=== PATIENT | male | born 1985 | race Caucasian/White ===

== ENCOUNTER 2022-03-28 10:24 | Emergency (ER) | payer BC ==
[2022-03-28 10:39] VITALS: RESP 20; TEMP 98.1
[2022-03-28 11:40] LABS: Basophils # (A) 0.1 k/uL (0-0.2); Basophils % (A) 1 %; Eosinophils # (A) 0.4 k/uL (0-0.7); Eosinophils % (A) 4 %; HCT 45.8 % (39.0-53.0); HGB 15.3 gm/dL (13.0-17.5); Lymphocytes # (A) 1.6 k/uL (1.0-4.8); Lymphocytes % (A) 16 %; MCH 30.4 pg (25.0-35.0); MCHC 33.4 g/dL (31.0-37.0); MCV 90.8 fL (80.0-100.0); Mean Platelet Volume 7.7; Monocytes # (A) 0.7 k/uL (0-1.0); Monocytes % (A) 7 %; Neutrophils # (A) 7.2 k/uL (1.3-7.7); Neutrophils % (A) 70 %; Platelet Count 228 k/uL (150-450); RBC 5.05 m/uL (4.30-5.90); RDW 12.7 % (11.5-15.5); WBC 10.2 k/uL (3.8-10.6)
[2022-03-28 11:52] LABS: ALT 34 U/L (4-49); AST 31 U/L (17-59); African American GFR (CKD) >90 (>60 ml/min/1.73 sqM); Albumin 4.6 g/dL (3.5-5.0); Alkaline Phosphatase 89 U/L (38-126); Amylase 72 U/L (30-110); Anion Gap 10 mmol/L; Blood Urea Nitrogen 18 mg/dL (9-20); Calcium 10.1 mg/dL (8.4-10.2); Carbon Dioxide 27 mmol/L (22-30); Chloride 104 mmol/L (98-107); Glucose 103 mg/dL (74-99); Lipase 99 U/L (23-300); Non-African American GFR(CKD) >90 (>60 ml/min/1.73 sqM); Potassium 4.7 mmol/L (3.5-5.1); Sodium 141 mmol/L (137-145); Total Bilirubin 0.4 mg/dL (0.2-1.3); Total Protein 7.3 g/dL (6.3-8.2)
[2022-03-28 12:03] LABS: Appearance,Urine Clear (Clear); Bilirubin,Urine Negative (Negative); Blood,Urine Small (Negative); Color,Urine Light Yellow; Glucose,Urine (UA) Negative (Negative); Ketones,Urine Negative (Negative); Leukocyte Esterase,Urine Negative (Negative); Mucus,Urine Rare /hpf; Nitrite,Urine Negative (Negative); PH, Urine 5.5 (5.0-8.0); Protein,Urine Negative (Negative); RBC,Urine 17 /hpf (0-5); Specific Gravity,Urine 1.014 (1.001-1.035); Urobilinogen,Urine <2.0 mg/dL (<2.0); WBC,Urine <1 /hpf (0-5)
[2022-03-28] MEDS ORDERED: SODIUM CHLORIDE 0.9% 1,000 ML IV STA (12:28)
[2022-03-28] MEDS ORDERED: KETOROLAC 15 MG/ML 1 ML VIAL IVP STA (12:28)
--- NOTE | 2022-03-28 12:37 | XR ---
EXAMINATION TYPE: XR KUB DATE OF EXAM: 03/28/2022 COMPARISON: NONE HISTORY: Pain TECHNIQUE: One view abdominal series FINDINGS: The osseous structures are intact. The bowel gas pattern is nonspecific. Retained bowel contents thr oughout the colon. Images spine with hypertrophic and degenerative changes. Subsegmental changes at the left lung base. IMPRESSION: 1. Nonspecific abdomen. No diagnostic evidence of obstruction. 2. Left basilar atelectasis or early infiltrate.
--- NOTE | 2022-03-28 12:51 | ED ---
Abdominal Pain HPI - General Chief Complaint: Abdominal Pain Stated Complaint: rt side lower abd pain Time Seen by Provider: 03/28/22 12:21 Source: patient, RN notes reviewed Mode of arrival: ambulatory Limitations: no limitations - History of Present Illness Initial Comments: This is a 37-year-old male who presents to the emergency department for right lower quadrant pain. Patient states that the pain started yesterday, and seemed to improve. It then occurred at work again today, and he states that he dropped to his knees and threw up. The pain has been occurring intermittently. Denies any changes in bowel habits or urinary symptoms. States that he is not currently feeling nauseous. Denies any history of kidney stones or abdominal surgeries. Denies any fevers, chills, sore throat, cough, dyspnea, chest pain, palpitations, diarrhea, back pain, or headaches. MD Complaint: abdominal pain Onset/Timin -: days(s) Location: RLQ Associated Symptoms: nausea, vomiting - Related Data Previous Rx's Medication Instructions Recorded HYDROcodone/APAP 5-325MG [Bath 1 tab PO Q6HR PRN 3 Days #12 tab 03/28/22 5-325] Ondansetron Odt [Zofran Odt] 4 mg PO Q8HR PRN #20 tab 03/28/22 Tamsulosin [Flomax] 0.4 mg PO DAILY #10 cap 03/28/22 Allergies Allergy/AdvReac Type Severity Reaction Status Date / Time No Known Allergies Allergy Verified 03/28/22 12:59 Review of Systems ROS Statement: Those systems with pertinent positive or pertinent negative responses have been documented in the HPI. ROS Other: All systems not noted in ROS Statement are negative. Past Medical History Past Medical History: No Reported History History of Any Multi-Drug Resistant Organisms: None Reported Past Surgical History: No Surgical Hx Reported Past Psychological History: No Psychological Hx Reported Smoking Status: Current every day smoker Past Alcohol Use History: None Reported Past Drug Use History: None Reported General Exam Limitations: no limitations General appearance: alert, in no apparent distress Head exam: Present: atraumatic, normocephalic, normal inspection Respiratory exam: Present: normal lung sounds bilaterally. Absent: respiratory distress, wheezes, rales, rhonchi, stridor Cardiovascular Exam: Present: regular rate, normal rhythm, normal heart sounds. Absent: systolic murmur, diastolic murmur, rubs, gallop, clicks GI/Abdominal exam: Present: soft, tenderness (Right lower quadrant), guarding, normal bowel sounds. Absent: distended Neurological exam: Present: alert, oriented X3, CN II-XII intact Psychiatric exam: Present: normal affect, normal mood Skin exam: Present: warm, dry, intact, normal color. Absent: rash Course Vital Signs 03/28/22 03/28/22 10:37 15:43 Temperature 98.1 F Pulse Rate 72 70 Respiratory 20 20 Rate Blood Pressure 176/114 158/87 O2 Sat by Pulse 97 97 Oximetry Medical Decision Making - Medical Decision Making This is a 37-year-old male who presents to the emergency department for right lower quadrant pain. Lab work was nonactionable. Urinalysis does have a minor amount of blood. KUB x-ray obtained initially, revealing no acute irregularitie s. Computed tomography scan of the abdomen and pelvis obtained revealing a 3 mm right ureteral calculus with mild hydronephrosis. Patient's symptoms were controlled the emergency department. Prescription for Bath, Zofran, and Flomax provided. He is advised to alternate with ibuprofen and Tylenol and to take the Bath and his pain is the most severe. Advised the patient that the Bath is sedating and should be taken at night until he knows how it affects him. Follow-up for urology was provided, he is advised to contact the office for a follow-up appointment. Return precautions reviewed in depth, the patient is instructed to return to the emergency department with any new, worsening, or concerning symptoms. Patient verbalized understanding. This case was discussed in detail with the attending ED physician. Presentation, findings, and treatment plan discussed in detail as well. - Lab Data Result diagrams: 03/28/22 11:32 03/28/22 11:32 Lab Results 03/28/22 03/28/22 03/28/22 Range/Units 11:32 11:32 11:32 WBC 10.2 (3.8-10.6) k/uL RBC 5.05 (4.30-5.90) m/uL Hgb 15.3 (13.0-17.5) gm/dL Hct 45.8 (39.0-53.0) % MCV 90.8 (80.0-100.0) fL MCH 30.4 (25.0-35.0) pg MCHC 33.4 (31.0-37.0) g/dL RDW 12.7 (11.5-15.5) % Plt Count 228 (150-450) k/uL MPV 7.7 Neutrophils % 70 % Lymphocytes % 16 % Monocytes % 7 % Eosinophils % 4 % Basophils % 1 % Neutrophils # 7.2 (1.3-7.7) k/uL Lymphocytes # 1.6 (1.0-4.8) k/uL Monocytes # 0.7 (0-1.0) k/uL Eosinophils # 0.4 (0-0.7) k/uL Basophils # 0.1 (0-0.2) k/uL Sodium 141 (137-145) mmol/L Potassium 4.7 (3.5-5.1) mmol/L Chloride 104 (98-107) mmol/L Carbon Dioxide 27 (22-30) mmol/L Anion Gap 10 mmol/L BUN 18 (9-20) mg/dL Creatinine 0.95 (0.66-1.25) mg/dL Est GFR (CKD-EPI)AfAm >90 (>60 ml/min/1.73 sqM) Est GFR (CKD-EPI)NonAf >90 (>60 ml/min/1.73 sqM) Glucose 103 H (74-99) mg/dL Calcium 10.1 (8.4-10.2) mg/dL Total Bilirubin 0.4 (0.2-1.3) mg/dL AST 31 (17-59) U/L ALT 34 (4-49) U/L Alkaline Phosphatase 89 (38-126) U/L Troponin I (0.000-0.034) ng/mL Total Protein 7.3 (6.3-8.2) g/dL Albumin 4.6 (3.5-5.0) g/dL Amylase 72 (30-110) U/L Lipase 99 (23-300) U/L Urine Color Light Yellow Urine Appearance Clear (Clear) Urine pH 5.5 (5.0-8.0) Ur Specific [place] 1.014 (1.001-1.035) Urine Protein Negative (Negative) Urine Glucose (UA) Negative (Negative) Urine Ketones Negative (Negative) Urine Blood Small H (Negative) Urine Nitrite Negative (Negative) Urine Bilirubin Negative (Negative) Urine Urobilinogen <2.0 (<2.0) mg/dL Ur Leukocyte Esterase Negative (Negative) Urine RBC 17 H (0-5) /hpf Urine WBC <1 (0-5) /hpf Urine Mucus Rare H (None) /hpf 03/28/22 Range/Units 11:32 WBC (3.8-10.6) k/uL RBC (4.30-5.90) m/uL Hgb (13.0-17.5) gm/dL Hct (39.0-53.0) % MCV (80.0-100.0) fL MCH (25.0-35.0) pg MCHC (31.0-37.0) g/dL RDW (11.5-15.5) % Plt Count (150-450) k/uL MPV Neutrophils % % Lymphocytes % % Monocytes % % Eosinophils % % Basophils % % Neutrophils # (1.3-7.7) k/uL Lymphocytes # (1.0-4.8) k/uL Monocytes # (0-1.0) k/uL Eosinophils # (0-0.7) k/uL Basophils # (0-0.2) k/uL Sodium (137-145) mmol/L Potassium (3.5-5.1) mmol/L Chloride (98-107) mmol/L Carbon Dioxide (22-30) mmol/L Anion Gap mmol/L BUN (9-20) mg/dL Creatinine (0.66-1.25) mg/dL Est GFR (CKD-EPI)AfAm (>60 ml/min/1.73 sqM) Est GFR (CKD-EPI)NonAf (>60 ml/min/1.73 sqM) Glucose (74-99) mg/dL Calcium (8.4-10.2) mg/dL Total Bilirubin (0.2-1.3) mg/dL AST (17-59) U/L ALT (4-49) U/L Alkaline Phosphatase (38-126) U/L Troponin I <0.012 (0.000-0.034) ng/mL Total Protein (6.3-8.2) g/dL Albumin (3.5-5.0) g/dL Amylase (30-110) U/L Lipase (23-300) U/L Urine Color Urine Appearance (Clear) Urine pH (5.0-8.0) Ur Specific [place] (1.001-1.035) Urine Protein (Negative) Urine Glucose (UA) (Negative) Urine Ketones (Negative) Urine Blood (Negative) Urine Nitrite (Negative) Urine Bilirubin (Negative) Urine Urobilinogen (<2.0) mg/dL Ur Leukocyte Esterase (Negative) Urine RBC (0-5) /hpf Urine WBC (0-5) /hpf Urine Mucus (None) /hpf - Radiology Data Radiology results: report reviewed, image reviewed Disposition Clinical Impression: Right ureteral calculus Disposition: HOME SELF-CARE Instructions (If sedation given, give patient instructions): Kidney Stones (ED), Renal Colic (ED), How to Strain Your Urine (ED) Additional Instructions: Return to the emergency department with any new, worsening, or concerning symptoms. Alternate with ibuprofen and Tylenol as needed for pain relief and take the Bath sparingly when your pain is the most severe. Be aware that this may be sedating. Take the Zofran up to every 8 hours as needed for nausea and vomiting. Take the Flomax once daily with your largest meal of the day. Contact the urologist listed below for a follow-up appointment. Prescriptions: Tamsulosin [Flomax] 0.4 mg PO DAILY #10 cap HYDROcodone/APAP 5-325MG [Bath 5-325] 1 tab PO Q6HR PRN 3 Days #12 tab PRN Reason: Pain Ondansetron Odt [Zofran Odt] 4 mg PO Q8HR PRN #20 tab PRN Reason: Nausea And Vomiting Is patient prescribed a controlled substance at d/c from ED?: Yes When asked, does pt state using other controlled substances?: No If prescribed controlled substance>3 days was MAPS reviewed?: Prescribed <3 Days Referrals: None,Stated [Primary Care Provider] - 1-2 days Kyle Henriquez MD [STAFF PHYSICIAN] - 1-2 days
[2022-03-28] MEDS ORDERED: MORPHINE SULFATE 2 MG/ML SYRINGE IVP STA (14:08)
--- NOTE | 2022-03-28 14:12 | CT ---
EXAMINATION TYPE: CT abdomen pelvis w con DATE OF EXAM: 03/28/2022 COMPARISON: HISTORY: RLQ abdominal pain, groin pain x few days. CT DLP: 1934.3 mGycm CONTRAST: CT scan of the abdomen and pelvis is performed without Oral Contrast and with IV Contrast, patient in jected with 100 ML mL of Isovue 300. FINDINGS: LUNG BASES-: No visible nodule. No infiltrate. LIVER/GB: No calcified gallstones. No space occupying hepatic lesion. Biliary tree is of normal ca liber. PANCREAS: No inflammation. No distinct mass. SPLEEN: No splenic enlargement. No lesion seen. ADRENALS: No nodule. No thickening. KIDNEYS/BLADDER: 3 mm obstructing calculus mid right ureter resulting in mild right-sided hydronephro sis. Mild right sided renal edema. Nonobstructing 2 mm calculus mid pole right kidney. No additional calculi seen. BOWEL: Normal appendix. Normal bowel caliber. No inflammation. GENITAL ORGANS: No gross abnormality. LYMPH NODES: No greater than 1cm abdominal or pelvic lymph nodes are appreciated. AORTA: No significant abnormality. OSSEOUS STRUCTURES: No significant abnormality is seen. OTHER: No significant additional abnormality is seen. IMPRESSION: 3 mm obstructing calculus mid right ureter resulting in mild right-sided hydronephrosis. Mild right s ided renal edema.
[2022-03-28] MEDS ORDERED: ONDANSETRON 4 MG/2 ML VIAL IVP STA (14:20)
[2022-03-28 15:44] VITALS: BP 158/87; PULSE 70
== END 2022-03-28 15:44 | disposition home or self-care (01) ==
LOC: EC 10:24
DX: N20.1 Calculus of ureter (principal); F17.200 Nicotine dependence, unspecified, uncomplicated
CPT/HCPCS: 99284; 96374; 96375; 96361; 36415; 80053; 82150; 83690; 84484; 85025; 81001; 74018; 74177; J2405; J2270; J1885; Q9967

== ENCOUNTER → 2024-01-08 | Outpatient (CLI) | payer BC ==
--- NOTE | 2024-01-08 15:21 | XR ---
EXAMINATION TYPE: XR elbow complete LT DATE OF EXAM: 01/08/2024 3:06 PM CLINICAL INDICATION:Male, 38 years old with history of [id number] LT ELBOW PAIN; [facility] COMPARISON: None TECHNIQUE: XR elbow complete LT; elbow was examined in AP, lateral, and oblique projections. FINDINGS: No evidence of any acute osseous pathology, joint dislocation. Soft tissue swelling with e payton of the posterior aspect of the forearm. No evidence of joint effusion is present. IMPRESSION: Soft tissue swelling without evidence of fracture.
== END ==
LOC: RADXRYALE 14:54
PROVIDERS: ATTEND Physician Assistant
DX: M25.522 Pain in left elbow (principal); M79.89 Other specified soft tissue disorders